=== PATIENT | female | born 1940 | race Caucasian/White ===

== ENCOUNTER 2018-03-12 12:48 | Emergency (ER) | payer OTHER ==
[~2018-03-12] VITALS: Ht 165.1 cm; Wt 81.2 kg
[~2018-03-12 12:48] MED LIST: HYDROCODONE-AP1 EAC6 PO; LEVOTHYROXINE 0.1 MG
[2018-03-12] MEDS ORDERED: DIABETIC MED PO (12:58)
[2018-03-12] MEDS ORDERED: HIGH BLOOD PRESSURE PO (12:59)
[2018-03-12] MEDS ORDERED: HYDROCODONE-AP1 EAC6 PO (13:52)
[2018-03-12] MEDS ORDERED: IBUPROFEN 800800 M1 PO (13:52)
[2018-03-12 14:17] VITALS: BP 132/67
== END 2018-03-12 14:52 | disposition home or self-care (01) ==
LOC: M.ERS 12:48
DX: S52.591A Other fractures of lower end of right radius, initial encounter for closed fracture (principal); S52.611A Displaced fracture of right ulna styloid process, initial encounter for closed fracture; I10 Essential (primary) hypertension; E11.9 Type 2 diabetes mellitus without complications; E03.9 Hypothyroidism, unspecified; W18.39XA Other fall on same level, initial encounter; Y93.89 Activity, other specified; Y92.89 Other specified places as the place of occurrence of the external cause; Y99.8 Other external cause status

== ENCOUNTER 2020-12-02 16:01 | Emergency (ER) | payer OTHER ==
[~2020-12-02] VITALS: Ht 165.1 cm; Wt 77.1 kg
[~2020-12-02 16:01] MED LIST changes: +DIABETIC MED PO; +HIGH BLOOD PRESSURE PO; +IBUPROFEN 800800 M1 PO
[2020-12-02 17:19] VITALS: BP 144/69
== END 2020-12-02 17:20 | disposition home or self-care (01) ==
LOC: M.ERS 16:01
DX: S63.591A Other specified sprain of right wrist, initial encounter (principal); E11.9 Type 2 diabetes mellitus without complications; I10 Essential (primary) hypertension; E03.9 Hypothyroidism, unspecified; Z79.899 Other long term (current) drug therapy; W18.30XA Fall on same level, unspecified, initial encounter; Y93.89 Activity, other specified; Y92.89 Other specified places as the place of occurrence of the external cause; Y99.9 Unspecified external cause status